=== PATIENT | female | born 1980 ===

== ENCOUNTER → 2021-06-29 | Outpatient (CLI) | payer BC ==
--- NOTE | 2021-07-10 19:35 | EST ---
EXERCISE STRESS SEVEN-DAY EVENT MONITOR: Available rhythm strips were reviewed. There appears to be mostly sinus rhythm and sinus tachycardia. There was no evidence of any significant abnormal rhythms. FINAL IMPRESSION: Unremarkable seven-day event monitor with sinus rhythm. No significant symptoms were reported. MMODL / IJN: [id number] /
== END | disposition home or self-care (01) ==
LOC: RADECHMAIN 08:03
PROVIDERS: ATTEND Family Medicine
DX: R00.2 Palpitations (principal)
CPT/HCPCS: 93270